=== PATIENT | female | born 1935 | race Caucasian/White ===

== ENCOUNTER 2021-08-23 16:21 | Inpatient (IN) ==
[2021-08-23] MEDS: hydrALAZINE 25 MG TABLET PO SCH (22:22)
[2021-08-24] MEDS ORDERED: [UNRECOGNIZED DRUG - OTHER] PO SCH (09:00)
[2021-08-24] MEDS ORDERED: MULTIVIT MIN PO SCH (09:00)
[2021-08-24] MEDS ORDERED: IRON FUM PO SCH (09:00)
[2021-08-24] MEDS ORDERED: lisinopriL 20 MG TABLET PO SCH (09:00)
[2021-08-24] MEDS ORDERED: FOLIC AC PO SCH (09:00)
[2021-08-24] MEDS: Multivit/Ca/Min/Fe/FA 1 TAB TABLET PO SCH (09:17)
[2021-08-24] MEDS: Furosemide 20 MG TABLET PO SCH (09:17)
[2021-08-24] MEDS: hydrALAZINE 25 MG TABLET PO SCH ×3 (09:17→20:46)
[2021-08-24] MEDS: Renal Vitamin 1 CAP CAPSULE PO SCH (09:17)
[2021-08-24] MEDS: NIFEdipine XL (24 HR) 30 MG TAB.ER.24 PO SCH (09:17)
[2021-08-24] MEDS: Cholecalciferol (D-3) 1,000 UNIT (25MCG) TABLET PO SCH (09:17)
[2021-08-24] MEDS: *HR* Glimepiride 4 MG TABLET PO SCH ×2 (09:17→16:11)
[2021-08-24] MEDS: carvediloL 6.25 MG TABLET PO SCH ×2 (09:19→16:09)
[2021-08-24 10:13] LABS: Basophils # 0.1 K/mcL (0.0-0.2); Basophils % 0.5 %; Eosinophils # 0.2 K/mcL (0.0-0.6); Eosinophils % 1.4 %; Hematocrit 28.2 % (35.3-44.9); Hemoglobin 8.4 g/dL (11.5-15.4); Immature Granulocytes % 0.6 % (0-4); Lymphocytes # 1.3 K/mcL (0.6-4.6); Lymphocytes % 11.9 %; Mean Corpuscular HGB Conc 29.8 g/dL (31.6-35.5); Mean Corpuscular Hemoglobin 28.6 pg (28.0-33.3); Mean Corpuscular Volume 95.9 fL (83.0-100.0); Mean Platelet Volume 9.9 fL (9.4-12.4); Monocytes % 8.9 %; Neutrophils # 8.5 K/mcL (1.6-8.9); Platelet Count 187 K/mcL (140-400); Red Blood Count 2.94 M/mcL (3.82-4.97); Segmented Neutrophils % 76.7 %; White Blood Count 11.1 K/mcL (4.3-11.1)
[2021-08-24 10:26] LABS: Albumin 2.9 g/dL (3.5-5.7); Albumin/Globulin Ratio 1.1 (1.1-2.2); Bilirubin,Total 0.2 mg/dL (0.3-1.0); Calcium 8.4 mg/dL (8.6-10.3); Globulin 2.7 g/dL (2.4-3.5); Potassium 4.3 mEq/L (3.5-5.1); Total Protein 5.6 g/dL (6.4-8.9)
[2021-08-25] MEDS: Acetaminophen 325 MG TABLET PO PRN (03:30)
[2021-08-25] MEDS: Multivit/Ca/Min/Fe/FA 1 TAB TABLET PO SCH (11:21)
[2021-08-25] MEDS: Renal Vitamin 1 CAP CAPSULE PO SCH (11:21)
[2021-08-25] MEDS: Cholecalciferol (D-3) 1,000 UNIT (25MCG) TABLET PO SCH (11:22)
[2021-08-25] MEDS: carvediloL 6.25 MG TABLET PO SCH ×2 (11:22→17:07)
[2021-08-25] MEDS: hydrALAZINE 25 MG TABLET PO SCH ×3 (11:22→20:29)
[2021-08-25] MEDS: NIFEdipine XL (24 HR) 30 MG TAB.ER.24 PO SCH (11:22)
[2021-08-25] MEDS: Furosemide 20 MG TABLET PO SCH (11:22)
[2021-08-25] MEDS: *HR* Glimepiride 4 MG TABLET PO SCH (11:23)
[2021-08-26] MEDS ORDERED: Menthol 1 EACH LOZENGE PO PRN (02:33)
[2021-08-26] MEDS: carvediloL 6.25 MG TABLET PO SCH ×2 (08:25→16:29)
[2021-08-26] MEDS: Cholecalciferol (D-3) 1,000 UNIT (25MCG) TABLET PO SCH (08:25)
[2021-08-26] MEDS: Furosemide 20 MG TABLET PO SCH (08:25)
[2021-08-26] MEDS: Multivit/Ca/Min/Fe/FA 1 TAB TABLET PO SCH (08:25)
[2021-08-26] MEDS: Renal Vitamin 1 CAP CAPSULE PO SCH (08:25)
[2021-08-26] MEDS: hydrALAZINE 25 MG TABLET PO SCH ×3 (08:25→22:44)
[2021-08-26] MEDS: NIFEdipine XL (24 HR) 30 MG TAB.ER.24 PO SCH (08:25)
[2021-08-27 07:03] LABS: Hemoglobin 8.3 g/dL (11.5-15.4); Mean Corpuscular HGB Conc 29.6 g/dL (31.6-35.5); Mean Corpuscular Hemoglobin 28.3 pg (28.0-33.3); Mean Corpuscular Volume 95.6 fL (83.0-100.0); Mean Platelet Volume 10.4 fL (9.4-12.4); Platelet Count 200 K/mcL (140-400); Red Blood Count 2.93 M/mcL (3.82-4.97); Red Cell Distribution Width 14.2 % (11.5-14.5); White Blood Count 15.5 K/mcL (4.3-11.1)
[2021-08-27 07:18] LABS: Calcium 8.3 mg/dL (8.6-10.3); Potassium 4.1 mEq/L (3.5-5.1)
[2021-08-27] MEDS: carvediloL 6.25 MG TABLET PO SCH ×2 (08:35→16:33)
[2021-08-27] MEDS: Furosemide 20 MG TABLET PO SCH (08:35)
[2021-08-27] MEDS: NIFEdipine XL (24 HR) 30 MG TAB.ER.24 PO SCH (08:35)
[2021-08-27] MEDS: Multivit/Ca/Min/Fe/FA 1 TAB TABLET PO SCH (08:35)
[2021-08-27] MEDS: Renal Vitamin 1 CAP CAPSULE PO SCH (08:35)
[2021-08-27] MEDS: Cholecalciferol (D-3) 1,000 UNIT (25MCG) TABLET PO SCH (08:35)
[2021-08-27] MEDS: hydrALAZINE 25 MG TABLET PO SCH ×3 (08:35→20:46)
[2021-08-28 06:56] LABS: Basophils # 0.1 K/mcL (0.0-0.2); Basophils % 0.4 %; Eosinophils # 0.2 K/mcL (0.0-0.6); Eosinophils % 1.2 %; Hemoglobin 8.1 g/dL (11.5-15.4); Immature Granulocytes % 0.4 % (0-4); Lymphocytes # 1.5 K/mcL (0.6-4.6); Lymphocytes % 11.6 %; Mean Corpuscular Hemoglobin 28.5 pg (28.0-33.3); Mean Corpuscular Volume 95.1 fL (83.0-100.0); Mean Platelet Volume 10.2 fL (9.4-12.4); Monocytes # 0.9 K/mcL (0.0-1.3); Monocytes % 7.2 %; Neutrophils # 10.1 K/mcL (1.6-8.9); Platelet Count 199 K/mcL (140-400); Red Blood Count 2.84 M/mcL (3.82-4.97); Red Cell Distribution Width 14.2 % (11.5-14.5); Segmented Neutrophils % 79.2 %; White Blood Count 12.7 K/mcL (4.3-11.1)
[2021-08-28 07:20] LABS: Calcium 8.3 mg/dL (8.6-10.3); Magnesium 1.9 mg/dL (1.6-2.6); Potassium 4.5 mEq/L (3.5-5.1)
[2021-08-28] MEDS: Furosemide 20 MG TABLET PO SCH (09:45)
[2021-08-28] MEDS: Cholecalciferol (D-3) 1,000 UNIT (25MCG) TABLET PO SCH (09:45)
[2021-08-28] MEDS: hydrALAZINE 25 MG TABLET PO SCH ×3 (09:45→19:52)
[2021-08-28] MEDS: Multivit/Ca/Min/Fe/FA 1 TAB TABLET PO SCH (09:45)
[2021-08-28] MEDS: carvediloL 6.25 MG TABLET PO SCH ×2 (09:45→16:06)
[2021-08-28] MEDS: Renal Vitamin 1 CAP CAPSULE PO SCH (09:45)
[2021-08-28] MEDS: NIFEdipine XL (24 HR) 30 MG TAB.ER.24 PO SCH (09:45)
[2021-08-28] MEDS: Acetaminophen 325 MG TABLET PO PRN (19:50)
[2021-08-29] MEDS: Cholecalciferol (D-3) 1,000 UNIT (25MCG) TABLET PO SCH (07:42)
[2021-08-29] MEDS: Multivit/Ca/Min/Fe/FA 1 TAB TABLET PO SCH (07:43)
[2021-08-29] MEDS: NIFEdipine XL (24 HR) 30 MG TAB.ER.24 PO SCH (07:43)
[2021-08-29] MEDS: Furosemide 20 MG TABLET PO SCH (07:43)
[2021-08-29] MEDS: hydrALAZINE 25 MG TABLET PO SCH ×3 (07:43→20:46)
[2021-08-29] MEDS: carvediloL 6.25 MG TABLET PO SCH ×2 (07:43→17:02)
[2021-08-29] MEDS: Renal Vitamin 1 CAP CAPSULE PO SCH (07:44)
[2021-08-30] MEDS: NIFEdipine XL (24 HR) 30 MG TAB.ER.24 PO SCH (08:41)
[2021-08-30] MEDS: Renal Vitamin 1 CAP CAPSULE PO SCH (08:42)
[2021-08-30] MEDS: Multivit/Ca/Min/Fe/FA 1 TAB TABLET PO SCH (08:42)
[2021-08-30] MEDS: hydrALAZINE 25 MG TABLET PO SCH ×3 (08:42→20:33)
[2021-08-30] MEDS: Furosemide 20 MG TABLET PO SCH (08:42)
[2021-08-30] MEDS: carvediloL 6.25 MG TABLET PO SCH ×2 (08:42→17:00)
[2021-08-30] MEDS: Cholecalciferol (D-3) 1,000 UNIT (25MCG) TABLET PO SCH (08:43)
[2021-08-30] MEDS: Acetaminophen 325 MG TABLET PO PRN (20:33)
[2021-08-31] MEDS: hydrALAZINE 25 MG TABLET PO SCH ×3 (07:54→21:17)
[2021-08-31] MEDS: Furosemide 20 MG TABLET PO SCH (07:59)
[2021-08-31] MEDS: Multivit/Ca/Min/Fe/FA 1 TAB TABLET PO SCH (07:59)
[2021-08-31] MEDS: NIFEdipine XL (24 HR) 30 MG TAB.ER.24 PO SCH (07:59)
[2021-08-31] MEDS: carvediloL 6.25 MG TABLET PO SCH ×2 (07:59→16:31)
[2021-08-31] MEDS: Cholecalciferol (D-3) 1,000 UNIT (25MCG) TABLET PO SCH (08:00)
[2021-08-31] MEDS: Renal Vitamin 1 CAP CAPSULE PO SCH (08:00)
[2021-08-31] MEDS: Ondansetron ODT 4 MG TAB.RAPDIS SL PRN (18:51)
[2021-08-31] MEDS: Nystatin POWDER 30 GM BOTTLE TP SCH (21:22)
[2021-09-01 06:54] LABS: Basophils % 0.5 %; Eosinophils # 0.1 K/mcL (0.0-0.6); Hematocrit 29.3 % (35.3-44.9); Hemoglobin 8.6 g/dL (11.5-15.4); Immature Granulocytes % 0.9 % (0-4); Lymphocytes # 1.3 K/mcL (0.6-4.6); Lymphocytes % 14.9 %; Mean Corpuscular HGB Conc 29.4 g/dL (31.6-35.5); Mean Corpuscular Hemoglobin 28.3 pg (28.0-33.3); Mean Corpuscular Volume 96.4 fL (83.0-100.0); Mean Platelet Volume 10.4 fL (9.4-12.4); Monocytes # 0.8 K/mcL (0.0-1.3); Monocytes % 9.4 %; Neutrophils # 6.4 K/mcL (1.6-8.9); Platelet Count 202 K/mcL (140-400); Red Blood Count 3.04 M/mcL (3.82-4.97); Red Cell Distribution Width 14.7 % (11.5-14.5); Segmented Neutrophils % 73.3 %; White Blood Count 8.7 K/mcL (4.3-11.1)
[2021-09-01 07:07] LABS: Calcium 8.5 mg/dL (8.6-10.3); Potassium 3.9 mEq/L (3.5-5.1)
[2021-09-01] MEDS: Furosemide 20 MG TABLET PO SCH (08:36)
[2021-09-01] MEDS: Renal Vitamin 1 CAP CAPSULE PO SCH (08:36)
[2021-09-01] MEDS: carvediloL 6.25 MG TABLET PO SCH (08:36)
[2021-09-01] MEDS: Cholecalciferol (D-3) 1,000 UNIT (25MCG) TABLET PO SCH (08:36)
[2021-09-01] MEDS: Multivit/Ca/Min/Fe/FA 1 TAB TABLET PO SCH (08:37)
[2021-09-01] MEDS: NIFEdipine XL (24 HR) 30 MG TAB.ER.24 PO SCH (08:37)
[2021-09-01] MEDS: hydrALAZINE 25 MG TABLET PO SCH ×2 (08:37→16:11)
[2021-09-01] MEDS: Nystatin POWDER 30 GM BOTTLE TP SCH (08:38)
[2021-09-01] MEDS ORDERED: 0.9 % Sodium Chloride 250 ML IVC ONE ×2 (13:44→15:24)
[2021-09-01] MEDS ORDERED: 0.9 % Sodium Chloride 250 ML ONE (13:49)
[2021-09-01 15:44] LABS: ABG Base Excess -2 mEq/L (-2 to 3); ABG HCO3 25 mEq/L (21-27); ABG Oxygen Saturation 83 % (95-98); ABG PCO2 59 mmHg (35-45); ABG PH 7.24 pH Units (7.32-7.45); ABG PO2 57 mmHg (85-104); ABG TCO2 27 mEq/L (20-26)
[2021-09-01 16:12] LABS: Basophils % 0.3 %; Eosinophils # 0.1 K/mcL (0.0-0.6); Eosinophils % 0.6 %; Hematocrit 26.5 % (35.3-44.9); Hemoglobin 7.8 g/dL (11.5-15.4); Lymphocytes # 1.1 K/mcL (0.6-4.6); Lymphocytes % 13.8 %; Mean Corpuscular HGB Conc 29.4 g/dL (31.6-35.5); Mean Corpuscular Hemoglobin 28.5 pg (28.0-33.3); Mean Corpuscular Volume 96.7 fL (83.0-100.0); Monocytes # 0.7 K/mcL (0.0-1.3); Monocytes % 8.8 %; Neutrophils # 5.9 K/mcL (1.6-8.9); Platelet Count 179 K/mcL (140-400); Red Blood Count 2.74 M/mcL (3.82-4.97); Red Cell Distribution Width 14.6 % (11.5-14.5); Segmented Neutrophils % 75.5 %; White Blood Count 7.8 K/mcL (4.3-11.1)
[2021-09-01 16:31] LABS: Albumin 2.9 g/dL (3.5-5.7); Albumin/Globulin Ratio 1.1 (1.1-2.2); Bilirubin,Direct 0.1 mg/dL (0.0-0.2); Bilirubin,Indirect 0.2 mg/dL (0.0-1.0); Bilirubin,Total 0.3 mg/dL (0.3-1.0); Calcium 8.1 mg/dL (8.6-10.3); Globulin 2.6 g/dL (2.4-3.5); Potassium 4.1 mEq/L (3.5-5.1); Total Protein 5.5 g/dL (6.4-8.9)
[2021-09-01] MEDS ORDERED: Albuterol 2.5 MG/3 ML NEBULIZER IH PRN (16:49)
[2021-09-02] MEDS: Nystatin POWDER 30 GM BOTTLE TP SCH ×3 (01:02→20:37)
[2021-09-02 08:22] LABS: Basophils % 0.4 %; Eosinophils # 0.1 K/mcL (0.0-0.6); Eosinophils % 1.2 %; Hematocrit 26.6 % (35.3-44.9); Hemoglobin 7.9 g/dL (11.5-15.4); Immature Granulocytes % 1.6 % (0-4); Lymphocytes # 1.3 K/mcL (0.6-4.6); Lymphocytes % 13.8 %; Mean Corpuscular HGB Conc 29.7 g/dL (31.6-35.5); Mean Corpuscular Hemoglobin 28.5 pg (28.0-33.3); Mean Platelet Volume 10.3 fL (9.4-12.4); Monocytes # 0.8 K/mcL (0.0-1.3); Monocytes % 8.3 %; Nucleated Red Blood Cells 0.2 /100 WBC (0); Platelet Count 191 K/mcL (140-400); Red Blood Count 2.77 M/mcL (3.82-4.97); Red Cell Distribution Width 14.5 % (11.5-14.5); Segmented Neutrophils % 74.7 %; White Blood Count 9.3 K/mcL (4.3-11.1)
[2021-09-02] MEDS: Cholecalciferol (D-3) 1,000 UNIT (25MCG) TABLET PO SCH (08:23)
[2021-09-02] MEDS: Multivit/Ca/Min/Fe/FA 1 TAB TABLET PO SCH (08:23)
[2021-09-02] MEDS: Renal Vitamin 1 CAP CAPSULE PO SCH (08:23)
[2021-09-02 08:43] LABS: Calcium 8.5 mg/dL (8.6-10.3); Potassium 4.5 mEq/L (3.5-5.1)
[2021-09-02] MEDS: Acetaminophen 325 MG TABLET PO PRN (20:37)
[2021-09-03] MEDS: Multivit/Ca/Min/Fe/FA 1 TAB TABLET PO SCH (08:12)
[2021-09-03] MEDS: Cholecalciferol (D-3) 1,000 UNIT (25MCG) TABLET PO SCH (08:12)
[2021-09-03] MEDS: Furosemide 20 MG TABLET PO SCH (08:12)
[2021-09-03] MEDS: Renal Vitamin 1 CAP CAPSULE PO SCH (08:12)
[2021-09-03] MEDS: Nystatin POWDER 30 GM BOTTLE TP SCH ×2 (08:12→20:24)
[2021-09-03] MEDS ORDERED: Bisacodyl 10 MG RECTAL SUPPOSITORY RC PRN (11:27)
[2021-09-03] MEDS: carvediloL 6.25 MG TABLET PO SCH (18:32)
[2021-09-03] MEDS: polyethylene glycoL 3350 17 GM POWD.PACK PO SCH (18:33)
[2021-09-03] MEDS: hydrALAZINE 25 MG TABLET PO SCH (18:34)
[2021-09-04] MEDS: Renal Vitamin 1 CAP CAPSULE PO SCH (10:25)
[2021-09-04] MEDS: polyethylene glycoL 3350 17 GM POWD.PACK PO SCH (10:26)
[2021-09-04] MEDS: Nystatin POWDER 30 GM BOTTLE TP SCH ×2 (10:26→21:47)
[2021-09-04] MEDS: NIFEdipine XL (24 HR) 30 MG TAB.ER.24 PO SCH (10:26)
[2021-09-04] MEDS: Cholecalciferol (D-3) 1,000 UNIT (25MCG) TABLET PO SCH (10:26)
[2021-09-04] MEDS: Multivit/Ca/Min/Fe/FA 1 TAB TABLET PO SCH (10:26)
[2021-09-04] MEDS: Furosemide 20 MG TABLET PO SCH (10:32)
[2021-09-04 10:54] LABS: Calcium 8.1 mg/dL (8.6-10.3); Potassium 3.9 mEq/L (3.5-5.1)
[2021-09-04] MEDS: hydrALAZINE 25 MG TABLET PO SCH ×2 (15:23→21:46)
[2021-09-04] MEDS: carvediloL 6.25 MG TABLET PO SCH (17:07)
[2021-09-05] MEDS: Multivit/Ca/Min/Fe/FA 1 TAB TABLET PO SCH (07:48)
[2021-09-05] MEDS: Renal Vitamin 1 CAP CAPSULE PO SCH (07:48)
[2021-09-05] MEDS: Cholecalciferol (D-3) 1,000 UNIT (25MCG) TABLET PO SCH (07:48)
[2021-09-05] MEDS: carvediloL 6.25 MG TABLET PO SCH ×2 (07:48→17:17)
[2021-09-05] MEDS: hydrALAZINE 25 MG TABLET PO SCH ×3 (07:48→20:51)
[2021-09-05] MEDS: NIFEdipine XL (24 HR) 30 MG TAB.ER.24 PO SCH (07:49)
[2021-09-05] MEDS: Nystatin POWDER 30 GM BOTTLE TP SCH ×2 (07:49→20:51)
[2021-09-05] MEDS: polyethylene glycoL 3350 17 GM POWD.PACK PO SCH (07:49)
[2021-09-06] MEDS: polyethylene glycoL 3350 17 GM POWD.PACK PO SCH (09:37)
[2021-09-06] MEDS: Cholecalciferol (D-3) 1,000 UNIT (25MCG) TABLET PO SCH (09:37)
[2021-09-06] MEDS: NIFEdipine XL (24 HR) 30 MG TAB.ER.24 PO SCH (09:38)
[2021-09-06] MEDS: hydrALAZINE 25 MG TABLET PO SCH ×3 (09:38→21:15)
[2021-09-06] MEDS: Renal Vitamin 1 CAP CAPSULE PO SCH (09:38)
[2021-09-06] MEDS: carvediloL 6.25 MG TABLET PO SCH ×2 (09:38→16:59)
[2021-09-06] MEDS: Multivit/Ca/Min/Fe/FA 1 TAB TABLET PO SCH (09:38)
[2021-09-06] MEDS: Nystatin POWDER 30 GM BOTTLE TP SCH ×2 (09:43→21:16)
[2021-09-06 11:49] LABS: Basophils % 0.5 %; Eosinophils # 0.1 K/mcL (0.0-0.6); Eosinophils % 0.6 %; Hematocrit 26.2 % (35.3-44.9); Hemoglobin 8.2 g/dL (11.5-15.4); Immature Granulocytes % 1.4 % (0-4); Lymphocytes % 12.4 %; Mean Corpuscular HGB Conc 31.3 g/dL (31.6-35.5); Mean Corpuscular Volume 92.6 fL (83.0-100.0); Mean Platelet Volume 9.6 fL (9.4-12.4); Monocytes # 0.6 K/mcL (0.0-1.3); Monocytes % 7.1 %; Neutrophils # 6.6 K/mcL (1.6-8.9); Platelet Count 185 K/mcL (140-400); Red Blood Count 2.83 M/mcL (3.82-4.97); Red Cell Distribution Width 16.1 % (11.5-14.5); White Blood Count 8.4 K/mcL (4.3-11.1)
[2021-09-06 12:01] LABS: Albumin 2.8 g/dL (3.5-5.7); Albumin/Globulin Ratio 1.2 (1.1-2.2); Bilirubin,Total 0.4 mg/dL (0.3-1.0); Calcium 8.1 mg/dL (8.6-10.3); Globulin 2.4 g/dL (2.4-3.5); Magnesium 1.7 mg/dL (1.6-2.6); Potassium 3.4 mEq/L (3.5-5.1); Total Protein 5.2 g/dL (6.4-8.9)
[2021-09-07] MEDS: Cholecalciferol (D-3) 1,000 UNIT (25MCG) TABLET PO SCH (08:45)
[2021-09-07] MEDS: Renal Vitamin 1 CAP CAPSULE PO SCH (08:45)
[2021-09-07] MEDS: carvediloL 6.25 MG TABLET PO SCH ×2 (08:45→16:51)
[2021-09-07] MEDS: hydrALAZINE 25 MG TABLET PO SCH ×3 (08:45→20:41)
[2021-09-07] MEDS: Multivit/Ca/Min/Fe/FA 1 TAB TABLET PO SCH (08:45)
[2021-09-07] MEDS: NIFEdipine XL (24 HR) 30 MG TAB.ER.24 PO SCH (08:45)
[2021-09-07] MEDS: Nystatin POWDER 30 GM BOTTLE TP SCH ×2 (08:45→20:41)
[2021-09-07] MEDS: Acetaminophen 325 MG TABLET PO PRN (18:28)
[2021-09-08] MEDS: Multivit/Ca/Min/Fe/FA 1 TAB TABLET PO SCH (08:37)
[2021-09-08] MEDS: carvediloL 6.25 MG TABLET PO SCH ×2 (08:38→17:09)
[2021-09-08] MEDS: Renal Vitamin 1 CAP CAPSULE PO SCH (08:38)
[2021-09-08] MEDS: Cholecalciferol (D-3) 1,000 UNIT (25MCG) TABLET PO SCH (08:38)
[2021-09-08] MEDS: hydrALAZINE 25 MG TABLET PO SCH ×3 (08:38→20:15)
[2021-09-08] MEDS: NIFEdipine XL (24 HR) 30 MG TAB.ER.24 PO SCH (08:38)
[2021-09-08] MEDS: Nystatin POWDER 30 GM BOTTLE TP SCH ×2 (08:39→20:15)
[2021-09-08 10:24] LABS: Calcium 8.2 mg/dL (8.6-10.3); Potassium 3.2 mEq/L (3.5-5.1)
[2021-09-08] MEDS ORDERED: D5% in Water 1,000 ML IVC PRN (11:32)
[2021-09-08] MEDS ORDERED: *HR* Dextrose 50 % in Water (Syg) 50 ML SYRINGE IVP PRN (11:32)
[2021-09-08] MEDS ORDERED: Dextrose Gel 15 GM/37.5 ML TUBE PO PRN ×2 (11:32)
[2021-09-08] MEDS: Insulin LISPRO 300 UNITS/3 ML VIAL SUBQ SCH ×3 (11:52→20:16)
[2021-09-08] MEDS: Ondansetron ODT 4 MG TAB.RAPDIS SL PRN (17:45)
[2021-09-08] MEDS: Mirtazapine 15 MG TABLET PO SCH (20:15)
[2021-09-09] MEDS: hydrALAZINE 25 MG TABLET PO SCH ×3 (07:45→20:09)
[2021-09-09] MEDS: carvediloL 6.25 MG TABLET PO SCH ×2 (07:46→16:09)
[2021-09-09] MEDS: Renal Vitamin 1 CAP CAPSULE PO SCH (07:46)
[2021-09-09] MEDS: NIFEdipine XL (24 HR) 30 MG TAB.ER.24 PO SCH (07:47)
[2021-09-09] MEDS: Nystatin POWDER 30 GM BOTTLE TP SCH ×2 (07:48→20:09)
[2021-09-09] MEDS: Insulin LISPRO 300 UNITS/3 ML VIAL SUBQ SCH ×4 (07:50→20:09)
[2021-09-09] MEDS ORDERED: Ergocalciferol (VIT D2) 50,000 UNIT (1.25MG) CAP PO SCH (09:00)
[2021-09-09] MEDS: Mirtazapine 15 MG TABLET PO SCH (20:08)
[2021-09-10 07:03] VITALS: BP 119/52; PULSE 79; TEMP 97.3
[2021-09-10] MEDS: Insulin LISPRO 300 UNITS/3 ML VIAL SUBQ SCH ×2 (09:06→12:20)
[2021-09-10] MEDS: Renal Vitamin 1 CAP CAPSULE PO SCH (10:22)
[2021-09-10] MEDS: hydrALAZINE 25 MG TABLET PO SCH ×2 (10:22→18:53)
[2021-09-10] MEDS: carvediloL 6.25 MG TABLET PO SCH (10:22)
[2021-09-10] MEDS: Nystatin POWDER 30 GM BOTTLE TP SCH (10:23)
[2021-09-10] MEDS: NIFEdipine XL (24 HR) 30 MG TAB.ER.24 PO SCH (10:23)
[2021-09-10 11:29] LABS: Basophils % 0.3 %; Eosinophils % 0.2 %; Hematocrit 32.4 % (35.3-44.9); Hemoglobin 9.8 g/dL (11.5-15.4); Immature Granulocytes % 0.8 % (0-4); Lymphocytes # 1.4 K/mcL (0.6-4.6); Lymphocytes % 8.9 %; Mean Corpuscular HGB Conc 30.2 g/dL (31.6-35.5); Mean Corpuscular Hemoglobin 29.4 pg (28.0-33.3); Mean Corpuscular Volume 97.3 fL (83.0-100.0); Monocytes % 6.2 %; Neutrophils # 12.8 K/mcL (1.6-8.9); Platelet Count 225 K/mcL (140-400); Red Blood Count 3.33 M/mcL (3.82-4.97); Red Cell Distribution Width 18.1 % (11.5-14.5); Segmented Neutrophils % 83.6 %; White Blood Count 15.3 K/mcL (4.3-11.1)
[2021-09-10 11:31] LABS: Basophils # 0.1 K/mcL (0.0-0.2)
[2021-09-10 11:43] LABS: Albumin/Globulin Ratio 1.1 (1.1-2.2); Bilirubin,Total 0.4 mg/dL (0.3-1.0); Calcium 8.5 mg/dL (8.6-10.3); Globulin 2.8 g/dL (2.4-3.5); Potassium 3.4 mEq/L (3.5-5.1); Total Protein 5.8 g/dL (6.4-8.9)
[2021-09-10] MEDS ORDERED: Piperacillin/Tazobactam 3.375 GM in 0.9 % Sodium Chloride Mini Bag 100 ML IVPB SCH (11:56)
[2021-09-10 12:04] LABS: ABG Base Excess 2 mEq/L (-2 to 3); ABG HCO3 31 mEq/L (21-27); ABG Oxygen Saturation 72 % (95-98); ABG PCO2 80 mmHg (35-45); ABG PH 7.19 pH Units (7.32-7.45); ABG PO2 49 mmHg (85-104); ABG TCO2 33 mEq/L (20-26)
[2021-09-10 12:53] VITALS: RESP 18; O2SAT 93
[2021-09-10] MEDS: Ondansetron ODT 4 MG TAB.RAPDIS SL PRN (13:34)
== END 2021-09-10 15:21 | disposition short-term general hospital (02) | DRG 189 ==
LOC: INPPIK 21:48
PROVIDERS: ADMIT Family Medicine; ATTEND Family Medicine